=== PATIENT | male | born 1960 | race African-American/Black ===

== ENCOUNTER 2017-06-12 08:37 | Outpatient (CLI) | payer BC ==
[2017-06-12] MEDS ORDERED: Gadobenate Dimeglumine 529 MG/1 ML (20ML VIAL) ONE (13:27)
== END 2017-06-12 08:38 | disposition home or self-care (01) ==
LOC: BICMRI 08:37
PROVIDERS: ATTEND Otolaryngology Plastic Surgery within the Head & Neck
DX: R42 Dizziness and giddiness (principal); I67.89 Other cerebrovascular disease; Q28.3 Other malformations of cerebral vessels
CPT/HCPCS: 70553; A9579

== ENCOUNTER 2018-01-18 08:45 | Inpatient (IN) | payer BC ==
[2018-01-18 09:14] VITALS: BMI 24.3
[2018-01-30] MEDS ORDERED: CEFAZOLIN/Water 2 GM/20 ML SYRINGE ONE (06:57)
[2018-01-30] MEDS ORDERED: Sodium Chloride 0.9% 100 ML ONE (06:57)
[2018-01-30] MEDS ORDERED: Promethazine HCl 25 MG/ML VIAL IM PRN ×3 (08:00→10:32)
[2018-01-30] MEDS ORDERED: Ondansetron HCl/PF 4 MG/2 ML Vial IVP PRN ×3 (08:00→10:32)
[2018-01-30] MEDS ORDERED: Hydrocerin (Eucerin) Cream 120 gm Jar TOP PRN (08:00)
[2018-01-30] MEDS ORDERED: Promethazine HCl 25 MG SUPP PR PRN (08:00)
[2018-01-30] MEDS ORDERED: HYDROcodone/Acetaminophen 5/325 mg Tablet PO PRN ×2 (08:00)
[2018-01-30] MEDS ORDERED: diphenhydrAMINE 50 MG/ML VIAL IVP PRN (08:00)
[2018-01-30] MEDS ORDERED: traMADol HCl 50 MG TAB PO PRN ×3 (08:00→09:03)
[2018-01-30] MEDS ORDERED: Zolpidem Tartrate 5 MG TAB PO PRN ×2 (08:00→09:03)
[2018-01-30] MEDS ORDERED: fentaNYL Citrate/PF 1,250 MCG, Bupivacaine 25 ML in Sodium Chloride 0.9% 250 ML 200 ML EPIDURAL SCH (08:00)
[2018-01-30] MEDS ORDERED: Naloxone HCl 0.4 mg/ml Vial IVP PRN (08:00)
[2018-01-30] MEDS ORDERED: diphenhydrAMINE 50 MG/ML VIAL IM PRN (08:00)
[2018-01-30] MEDS ORDERED: Naloxone HCl 0.4 mg/ml Vial IV PRN (08:00)
[2018-01-30] MEDS ORDERED: Ketorolac Tromethamine 30 MG/ML VIAL IVP PRN (08:00)
[2018-01-30] MEDS ORDERED: Bupivacaine 0.25% 10 ML VIAL EPIDURAL PRN (08:00)
[2018-01-30] MEDS ORDERED: Acetaminophen 325 MG TAB PO PRN (09:03)
[2018-01-30] MEDS ORDERED: Loperamide HCl 2 MG CAP PO PRN (09:03)
[2018-01-30] MEDS ORDERED: diphenhydrAMINE 25 MG CAP PO PRN (09:03)
[2018-01-30] MEDS ORDERED: HYDROcodone/Acetaminophen 10/325 mg Tablet PO PRN ×2 (09:03)
[2018-01-30] MEDS ORDERED: Fentanyl 100 MCG/2 ML VIAL SLOW IVP PRN ×2 (09:03)
[2018-01-30] MEDS ORDERED: Ropivacaine 0.2% HCl/PF 20 ML ONE (09:37)
[2018-01-30] MEDS ORDERED: Promethazine HCl 25 MG/ML VIAL SLOW IVP PRN (10:32)
[2018-01-30] MEDS ORDERED: Fentanyl 100 MCG/2 ML VIAL ONE (11:17)
--- NOTE | 2018-01-30 12:46 | OP ---
PREOPERATIVE DIAGNOSIS: Degenerative joint disease, right hip. POSTOPERATIVE DIAGNOSIS: Degenerative joint disease, right hip. SURGEON: Raul James M.D. CARPENTRY INSTRUCTOR: Mark Liao PA-C. BLOOD LOSS: 200 mL SPECIMEN: None. DRAINS: None. COMPLICATIONS: None. IMPLANTS USED: [place] Accolade stem #3 with a -5 ceramic 36 head, 52 mm PSL cup with a 36 mm X3 bob yethylene liner. PROCEDURE IN DETAIL: After informed consent was obtained in the preoperative holding area, the patie nt was taken to the operative suite where general anesthesia was induced. The patient was then posit ioned in the lateral decubitus position. The hip was then prepped and draped in usual sterile fashio n. The patient received preoperative antibiotics. Prior to incision, time-out was called and all me mbers of the surgical team agreed upon site, surgeon, and patient. After this, a longitudinal incisi on was made directly over the trochanter, noted by palpation extending 2 fingerbreadths above and bel ow the trochanter. The deeper subcutaneous layer was undermined with Bovie electrocautery. The ilio tibial band was encountered and incised sharply and the plane below this was developed bluntly. [facility] to hold this opened. The lateral aspect of the trochanter and the abduct or muscles were encountered and then reflected anteriorly off the trochanter using Bovie electrocaute ry. Once this was completed, the anterior capsule was then encountered and identified and copious ca psulotomy was carried out, exposing the femoral neck and head. Dislocation maneuver was then performe d and an in situ provisional neck cut was then made using the oscillating saw. Attention was then tu rned to acetabular preparation and sequential reaming was carried out up to the appropriate diameter and a trial was then malleted into place with good firm resistance and no pullout. The permanent lavonne tabular shell was then malleted squarely into place, as was the appropriate liner. Once completed, t he wound was copiously irrigated and attention was then turned to femoral preparation. Flexion and ex ternal rotation was performed of the exposed thigh and femoral elevators were then placed at the prox imal aspect of the wound. Canal finder was used to establish the length of the canal and sequential reaming was carried out, followed by broaching. Once the appropriate stability was established with the trial broaches with both flexion, extension and rotational stability, we did trial with neutral a nd 2 mm offset incremental necks. Once the appropriate size was decided upon, with good stability no malu with flexion, extension, internal and external rotation and shuck being negative, we removed the femoral trial broach and malletted into place the permanent prosthesis with good firm fit, which was also stable to rotation. Again, the hip felt very stable to flexion, extension, internal and externa l rotation. Leg lengths appeared near anatomic clinically and we were quite happy with prosthesis pl acement. Copious irrigation was then carried out through the entirety of the wound. Primary closure of the abductors was accomplished with interrupted #2 Vicryl [id number] stitches and the IT ban d was then closed with interrupted #2 Vicryl, oversewn with a #2 running barbed Quill stitch. Subcut aneous fascia was closed with running barbed Quill stitch and a subcuticular Monocryl barbed Quill st itch was used for skin closure and augmented with skin cement. A sterile dressing was applied. The p rocedure was terminated without any complication. All counts were correct. The patient was awakened in the operative suite and taken to the recovery room in stable condition.
--- NOTE | 2018-01-30 12:49 | RAD ---
FRONTAL VIEW RIGHT HIP: Indication: Post op evaluation. FINDINGS: There is a right hip prosthesis appropriately aligned. No acute hardware complication. IMPRESSION: Post-operative right hip without acute hardware complication. POS: [facility]
[2018-01-30] MEDS ORDERED: PROPOFOL 200 MG/20 ML VIAL ONE (13:27)
[2018-01-30] MEDS ORDERED: Glycopyrrolate 0.2 MG/ML 5 ML SYRINGE ONE (13:27)
[2018-01-30] MEDS ORDERED: Ondansetron HCl/PF 4 MG/2 ML Vial ONE (13:27)
[2018-01-30] MEDS ORDERED: PHENYLEPHRINE-NS 100 MCG/ML 10 ML SYRINGE ONE (13:27)
--- NOTE | 2018-01-30 13:47 | PDOC.PN ---
- Subjective Encounter Start Date: 01/30/18 Encounter Start Time: 15:00 -: old records requested/rev Patient seen and examined. No new complaints. consulted for medical management - Objective MAR Reviewed: Yes Vital Signs & Weight: Weight Weight 165 lb Additional Labs: old medical record and labs reviewed Radiology Reviewed by me: Yes (hip xray reviewed) Phys Exam - Physical Examination Constitutional: NAD HEENT: PERRLA, moist MMs, sclera anicteric Neck: no JVD, supple Respiratory: no wheezing, no rales, no rhonchi Cardiovascular: RRR, no significant murmur, no rub Gastrointestinal: soft, non-tender, no distention, positive bowel sounds Musculoskeletal: no edema, pulses present right hip surgical site with dressing, epidural in place Neurological: non-focal, normal sensation, moves all 4 limbs Psychiatric: normal affect, A&O x 3 Skin: no rash, normal turgor Dx/Plan (1) Status post total hip replacement, right Code(s): Z96.641 - PRESENCE OF RIGHT ARTIFICIAL HIP JOINT Status: Acute (2) Anxiety and depression Code(s): F41.9 - ANXIETY DISORDER, UNSPECIFIED; F32.9 - MAJOR DEPRESSIVE DISORDER, SINGLE EPISODE, UNSPECIFIED Status: Chronic (3) BPH (benign prostatic hyperplasia) Code(s): N40.0 - BENIGN PROSTATIC HYPERPLASIA WITHOUT LOWER URINRY TRACT SYMP Status: Chronic (4) Dyslipidemia Code(s): E78.5 - HYPERLIPIDEMIA, UNSPECIFIED Status: Chronic (5) Glaucoma Code(s): H40.9 - UNSPECIFIED GLAUCOMA Status: Chronic (6) Hypertension Code(s): I10 - ESSENTIAL (PRIMARY) HYPERTENSION Status: Chronic - Plan cont current plan of care, PT/OT * continue aspirin for DVT prophylaxis as per protocol * add pepcid for GI prophylaxis * code status- full code * epidural as per anesthesia * PT/OT as per [facility] protocol * pain control with pain meds as below * medication reviewed as below * symptomatic treatment * home medication reconciled. Review of Systems - Review of Systems Constitutional: negative: fever, chills, sweats, weakness, malaise, other ENT: negative: Ear Pain, Ear Discharge, Nose Pain, Nose Discharge, Nose Congestion, Mouth Pain, Mouth Swelling, Throat Pain, Throat Swelling, Other Respiratory: negative: Cough, Dry, Shortness of Breath, Hemoptysis, SOB with Excertion, Pleuritic Pain, Sputum, Wheezing Cardiovascular: negative: chest pain, palpitations, orthopnea, paroxysmal nocturnal dyspnea, edema, light headedness, other Gastrointestinal: negative: Nausea, Vomiting, Abdominal Pain, Diarrhea, Constipation, Melena, Hematochezia, Other Genitourinary: negative: Dysuria, Frequency, Incontinence, Hematuria, Retention , Other Musculoskeletal: negative: Neck Pain, Shoulder Pain, Arm Pain, Back Pain, Hand Pain, Leg Pain, Foot Pain, Other Skin: negative: Rash, Lesions, [place], Bruising, Other - Medications/Allergies Allergies/Adverse Reactions: Allergies Allergy/AdvReac Type Severity Reaction Status Date / Time iodine Allergy Verified 01/18/18 09:14 shellfish derived Allergy Verified 01/18/18 09:14 lactose AdvReac intolerant Verified 01/18/18 09:22 Medications: Current Medications Acetaminophen (Tylenol) 650 mg PO Q4H PRN PRN Reason: EATON/ T > 101F; Mild Pain (1-3) Hydrocodone Bitart/Acetaminophen ([place] 5/325) 1 tab PO Q4H PRN PRN Reason: Mild Pain 0-3 Hydrocodone Bitart/Acetaminophen ([place] 5/325) 2 tab PO Q4H PRN PRN Reason: For Moderate Pain 4-6 Hydrocodone Bitart/Acetaminophen ([place] 10/325) 1 tab PO Q4H PRN PRN Reason: Moderate Pain (4-6) Hydrocodone Bitart/Acetaminophen ([place] 10/325) 2 tab PO Q4H PRN PRN Reason: Severe Pain (7-10) Aspirin (Ecotrin) 81 mg PO BID [facility] Atorvastatin Calcium (Lipitor) 80 mg PO HS [facility] Bupivacaine HCl (Marcaine) 5 ml EPIDURAL ONE PRN PRN Reason: UNCONTROLLED PAIN Stop: 01/31/18 08:01 Bupropion HCl (Wellbutrin Xl) 150 mg PO QAM [facility] Cefazolin Sodium (Ancef) 2 gm SLOW IVP Q8HR [facility] Stop: 01/30/18 22:01 Diphenhydramine HCl (Benadryl) 25 mg PO Q3H PRN PRN Reason: Itching Diphenhydramine HCl (Benadryl) 25 mg IM Q3H PRN PRN Reason: Itching Diphenhydramine HCl (Benadryl) 25 mg IVP Q3H PRN PRN Reason: Itching Diphenhydramine HCl (Benadryl) 25 mg PO Q6H PRN PRN Reason: Itching Emollient Cream (Hydrocerin Cream) 0 gm TOP PRN PRN PRN Reason: Itching Fentanyl (Sublimaze) 50 mcg SLOW IVP Q30MIN PRN PRN Reason: Moderate Pain (4-6) Fentanyl (Sublimaze) 100 mcg SLOW IVP Q1H PRN PRN Reason: Severe Pain (7-10) Ferrous Gluconate (Fergon) 324 mg PO BID [facility] Fentanyl Citrate 1,250 mcg/Bupivacaine HCl 25 ml/ Sodium Chloride 250 mls @ 6 mls/hr EPIDURAL INF LINDA Sodium Chloride (Normal Saline 0.9%) 1,000 mls @ 100 mls/hr IV .Q10H [facility] Iron/Minerals/Multivitamins (Theragran M) 1 tab PO DAILY [facility] Ketorolac Tromethamine (Toradol) 30 mg IVP Q6H PRN PRN Reason: Moderate Pain (4-6) Stop: 02/02/18 08:01 Latanoprost (Xalatan 0.005% Ophth Soln) 1 drop EA EYE HS [facility] Loperamide HCl (Imodium) 2 mg PO PRN PRN PRN Reason: Diarrhea/Loose Stools Losartan Potassium (Cozaar) 100 mg PO DAILY [facility] Miscellaneous Information (Communication Order-Pharmacy) 1 each FS ASDIR [facility] Naloxone HCl (Narcan) 0.2 mg IV Q5MIN PRN PRN Reason: RR <=8 OR OBTUNDED/UNAROUSABLE Naloxone HCl (Narcan) 0.1 mg IVP Q15MIN PRN PRN Reason: URINARY RETENTION Ondansetron HCl (Zofran) 4 mg IVP Q6H PRN PRN Reason: Nausea/Vomiting Promethazine HCl (Phenergan Suppository) 25 mg NV Q4H PRN PRN Reason: Nausea/Vomiting Promethazine HCl (Phenergan) 12.5 mg IM Q4H PRN PRN Reason: Nausea/Vomiting Senna/Docusate Sodium (Senokot S) 2 tab PO BID [facility] Sodium Chloride (Flush - Normal Saline) 10 ml IVF PRN PRN PRN Reason: Saline Flush Tamsulosin HCl (Flomax) 0.4 mg PO HS [facility] Tramadol HCl (Ultram) 50 mg PO Q6H PRN PRN Reason: Mild Pain 1-3 Tramadol HCl (Ultram) 100 mg PO Q6H PRN PRN Reason: Moderate Pain 4-6 Tramadol HCl (Ultram) 100 mg PO Q6H PRN PRN Reason: Mild Pain (1-3) Zolpidem Tartrate (Ambien) 5 mg PO HSPRN PRN PRN Reason: Insomnia Zolpidem Tartrate (Ambien) 5 mg PO HSPRN PRN PRN Reason: Insomnia
[2018-01-30] MEDS ORDERED: hydrALAZINE 20 MG/ML VIAL SLOW IVP PRN (13:50)
[2018-01-30] MEDS ORDERED: Milk Of Magnesia 30 ML UDCUP PO PRN (13:50)
[2018-01-30] MEDS ORDERED: Chloraseptic Spray 180 ml Bottle PO PRN (13:50)
[2018-01-30] MEDS ORDERED: Artificial Tears 18 DROP/0.9 ML EA EYE PRN (13:50)
[2018-01-30] MEDS ORDERED: Eucerin (Mineral Oil/Petrolatum,White) 30 gm Jar TOP PRN (13:50)
[2018-01-30] MEDS ORDERED: Ondansetron ODT 4 MG TAB PO PRN (13:50)
[2018-01-30] MEDS ORDERED: Senokot 8.6 MG TAB PO PRN (13:50)
[2018-01-30] MEDS ORDERED: Diabetic Tussin 200 MG/10 ML UDCUP PO PRN (13:50)
[2018-01-30] MEDS ORDERED: Mag-Al 1200 mg/1200 mg/30 ML UDCUP PO PRN (13:50)
[2018-01-30] MEDS ORDERED: CEFAZOLIN/Water 2 GM/20 ML SYRINGE SLOW IVP SCH (14:00)
[2018-01-30] MEDS: CEFAZOLIN/Water 2 GM/20 ML SYRINGE SLOW IVP SCH (16:38)
[2018-01-30] MEDS: Sodium Chloride 0.9% 1,000 ML IV SCH ×2 (16:39→17:27)
[2018-01-30] MEDS: Ferrous Gluconate 324 MG TAB PO SCH (20:59)
[2018-01-30] MEDS: Atorvastatin Calcium 40 MG TAB PO SCH (20:59)
[2018-01-30] MEDS: Tamsulosin HCl 0.4 MG CAP PO SCH (20:59)
[2018-01-30] MEDS: Aspirin 81 mg Enteric Coated Tablet PO SCH (21:00)
[2018-01-30] MEDS: Latanoprost 0.005% Ophth Soln 2.5 ml Bottle EA EYE SCH (21:01)
[2018-01-30] MEDS: Famotidine 20 MG TAB PO SCH (21:01)
[2018-01-30] MEDS: Senokot S 8.6-50 MG TAB PO SCH (21:02)
[2018-01-31] MEDS: CEFAZOLIN/Water 2 GM/20 ML SYRINGE SLOW IVP SCH (00:50)
[2018-01-31] MEDS: Sodium Chloride 0.9% 1,000 ML IV SCH ×2 (04:19→16:34)
[2018-01-31 05:54] LABS: Hemoglobin 11.1 g/dL (14.0-18.0); Mean Corpuscular HGB CONC 34.3 g/dL (32.0-36.0); Mean Corpuscular Hemoglobin 30.1 pg (27.0-31.0); Mean Corpuscular Volume 87.6 fL (78.0-98.0); Mean Platelet Volume 6.9 fL (7.4-10.4); Platelet Count 167 thou/uL (130-400); RBC Distribution Width 12.3 % (11.5-14.5); Red Blood Cell (RBC) Count 3.69 mill/uL (4.70-6.10); White Blood Cell (WBC) Count 7.1 thou/uL (4.8-10.8)
[2018-01-31] MEDS: diphenhydrAMINE 25 MG CAP PO PRN ×2 (06:40→20:38)
[2018-01-31] MEDS: Multivitamin W/ Minerals 1 TAB PO SCH (08:52)
[2018-01-31] MEDS: Aspirin 81 mg Enteric Coated Tablet PO SCH ×2 (08:53→20:33)
[2018-01-31] MEDS: Ferrous Gluconate 324 MG TAB PO SCH ×2 (08:53→20:33)
[2018-01-31] MEDS: Famotidine 20 MG TAB PO SCH ×2 (08:54→20:33)
[2018-01-31] MEDS: Senokot S 8.6-50 MG TAB PO SCH ×2 (08:54→20:33)
[2018-01-31] MEDS: Losartan 25 MG TAB PO SCH (08:54)
[2018-01-31] MEDS: Bupropion 150 MG XL TAB PO SCH (08:56)
--- NOTE | 2018-01-31 10:31 | PDOC.PN ---
- Subjective Encounter Start Date: 01/31/18 Encounter Start Time: 09:30 Patient seen and examined. No new complaints. No overnight events overall doing well, pain is controlled, - Objective Resuscitation Status: Resuscitation Status FULL:Full Resuscitation MAR Reviewed: Yes Vital Signs & Weight: Vital Signs (12 hours) Temp Pulse Resp BP BP Pulse Ox 01/31/18 07:52 99.4 F 103 H 16 124/73 97 01/31/18 04:00 99.8 F H 89 18 125/72 98 01/31/18 00:00 99.8 F H 75 18 149/76 H 99 Weight Weight 165 lb I&O: 01/30/18 01/31/18 02/01/18 06:59 06:59 06:59 Intake Total 920 2208 Output Total 1150 2600 Balance -230 -392 Result Diagrams: 01/31/18 05:21 Phys Exam - Physical Examination Constitutional: NAD HEENT: PERRLA, moist MMs, sclera anicteric Neck: no JVD, supple Respiratory: no wheezing, no rales, no rhonchi Cardiovascular: RRR, no significant murmur, no rub Gastrointestinal: soft, non-tender, no distention, positive bowel sounds Musculoskeletal: no edema, pulses present surgical site with dressing Neurological: non-focal, normal sensation Psychiatric: normal affect, A&O x 3 Skin: no rash, normal turgor Dx/Plan (1) Status post total hip replacement, right Code(s): Z96.641 - PRESENCE OF RIGHT ARTIFICIAL HIP JOINT Status: Acute (2) Anxiety and depression Code(s): F41.9 - ANXIETY DISORDER, UNSPECIFIED; F32.9 - MAJOR DEPRESSIVE DISORDER, SINGLE EPISODE, UNSPECIFIED Status: Chronic (3) BPH (benign prostatic hyperplasia) Code(s): N40.0 - BENIGN PROSTATIC HYPERPLASIA WITHOUT LOWER URINRY TRACT SYMP Status: Chronic (4) Dyslipidemia Code(s): E78.5 - HYPERLIPIDEMIA, UNSPECIFIED Status: Chronic (5) Glaucoma Code(s): H40.9 - UNSPECIFIED GLAUCOMA Status: Chronic (6) Hypertension Code(s): I10 - ESSENTIAL (PRIMARY) HYPERTENSION Status: Chronic - Plan cont current plan of care, PT/OT * continue aspirin for DVT prophylaxis * continue pepcid for GI prophylaxis * epidural as per anesthesia * PT/OT as per [facility] protocol * pain controlled with pain meds as below * medication reviewed as below * symptomatic treatment * medically stable with current treatment * discharge will defer to primary team. Review of Systems - Review of Systems ENT: negative: Ear Pain, Ear Discharge, Nose Pain, Nose Discharge, Nose Congestion, Mouth Pain, Mouth Swelling, Throat Pain, Throat Swelling, Other Respiratory: negative: Cough, Dry, Shortness of Breath, Hemoptysis, SOB with Excertion, Pleuritic Pain, Sputum, Wheezing Cardiovascular: negative: chest pain, palpitations, orthopnea, paroxysmal nocturnal dyspnea, edema, light headedness, other Gastrointestinal: negative: Nausea, Vomiting, Abdominal Pain, Diarrhea, Constipation, Melena, Hematochezia, Other Genitourinary: negative: Dysuria, Frequency, Incontinence, Hematuria, Retention , Other Musculoskeletal: negative: Neck Pain, Shoulder Pain, Arm Pain, Back Pain, Hand Pain, Leg Pain, Foot Pain, Other Skin: negative: Rash, Lesions, [place], Bruising, Other - Medications/Allergies Allergies/Adverse Reactions: Allergies Allergy/AdvReac Type Severity Reaction Status Date / Time iodine Allergy Verified 01/18/18 09:14 shellfish derived Allergy Verified 01/18/18 09:14 lactose AdvReac intolerant Verified 01/18/18 09:22 Medications: Current Medications Acetaminophen (Tylenol) 650 mg PO Q4H PRN PRN Reason: EATON/ T > 101F; Mild Pain (1-3) Hydrocodone Bitart/Acetaminophen ([place] 5/325) 1 tab PO Q4H PRN PRN Reason: Mild Pain 0-3 Hydrocodone Bitart/Acetaminophen ([place] 5/325) 2 tab PO Q4H PRN PRN Reason: For Moderate Pain 4-6 Al Hydroxide/Mg Hydroxide (Maalox) 15 ml PO Q4H PRN PRN Reason: Heartburn or Indigestion Artificial Tears (Tears Naturale) 0 drop EA EYE PRN PRN PRN Reason: Dry Eyes Aspirin (Ecotrin) 81 mg PO BID [facility] Last Admin: 01/31/18 08:53 Dose: 81 mg Atorvastatin Calcium (Lipitor) 80 mg PO HS [facility] Last Admin: 01/30/18 20:59 Dose: 80 mg Bupropion HCl (Wellbutrin Xl) 150 mg PO QAM [facility] Last Admin: 01/31/18 08:56 Dose: 150 mg Diphenhydramine HCl (Benadryl) 25 mg PO Q3H PRN PRN Reason: Itching Last Admin: 01/31/18 06:40 Dose: 25 mg Diphenhydramine HCl (Benadryl) 25 mg IM Q3H PRN PRN Reason: Itching Diphenhydramine HCl (Benadryl) 25 mg IVP Q3H PRN PRN Reason: Itching Diphenhydramine HCl (Benadryl) 25 mg PO Q6H PRN PRN Reason: Itching Emollient Cream (Hydrocerin Cream) 0 gm TOP PRN PRN PRN Reason: Itching Famotidine (Pepcid) 20 mg PO BID [facility] Last Admin: 01/31/18 08:54 Dose: 20 mg Ferrous Gluconate (Fergon) 324 mg PO BID [facility] Last Admin: 01/31/18 08:53 Dose: 324 mg Guaifenesin (Robitussin Sf) 200 mg PO Q4H PRN PRN Reason: Cough Hydralazine HCl (Apresoline) 10 mg SLOW IVP Q4H PRN PRN Reason: Systolic BP > 180 Fentanyl Citrate 1,250 mcg/Bupivacaine HCl 25 ml/ Sodium Chloride 250 mls @ 6 mls/hr EPIDURAL INF [facility] Sodium Chloride (Normal Saline 0.9%) 1,000 mls @ 100 mls/hr IV .Q10H [facility] Last Admin: 01/31/18 04:19 Dose: Not Given Iron/Minerals/Multivitamins (Theragran M) 1 tab PO DAILY [facility] Last Admin: 01/31/18 08:52 Dose: 1 tab Ketorolac Tromethamine (Toradol) 30 mg IVP Q6H PRN PRN Reason: Moderate Pain (4-6) Stop: 02/02/18 08:01 Latanoprost (Xalatan 0.005% Ophth Soln) 1 drop EA EYE HS [facility] Last Admin: 01/30/18 21:01 Dose: 1 drp Loperamide HCl (Imodium) 2 mg PO PRN PRN PRN Reason: Diarrhea/Loose Stools Losartan Potassium (Cozaar) 100 mg PO DAILY [facility] Last Admin: 01/31/18 08:54 Dose: 100 mg Magnesium Hydroxide (Milk Of Magnesium) 30 ml PO DAILYPRN PRN PRN Reason: Constipation Mineral Oil/White Petrolatum (Eucerin Cream) 0 gm TOP BIDPRN PRN PRN Reason: Dry Skin Miscellaneous Information (Communication Order-Pharmacy) 1 each FS ASDIR [facility] Naloxone HCl (Narcan) 0.2 mg IV Q5MIN PRN PRN Reason: RR <=8 OR OBTUNDED/UNAROUSABLE Naloxone HCl (Narcan) 0.1 mg IVP Q15MIN PRN PRN Reason: URINARY RETENTION Ondansetron HCl (Zofran) 4 mg IVP Q6H PRN PRN Reason: Nausea/Vomiting Ondansetron HCl (Zofran Odt) 4 mg PO Q6H PRN PRN Reason: Nausea/Vomiting Phenol (Chloraseptic [place] 180 Ml Bot) 0 ml PO PRN PRN PRN Reason: Sore Throat Promethazine HCl (Phenergan Suppository) 25 mg [place] Q4H PRN PRN Reason: Nausea/Vomiting Promethazine HCl (Phenergan) 12.5 mg IM Q4H PRN PRN Reason: Nausea/Vomiting Senna (Senokot) 2 tab PO HSPRN PRN PRN Reason: Constipation Senna/Docusate Sodium (Senokot S) 2 tab PO BID [facility] Last Admin: 01/31/18 08:54 Dose: Not Given Sodium Chloride (Flush - Normal Saline) 10 ml IVF PRN PRN PRN Reason: Saline Flush Tamsulosin HCl (Flomax) 0.4 mg PO [facility] Last Admin: 01/30/18 20:59 Dose: 0.4 mg Tramadol HCl (Ultram) 50 mg PO Q6H PRN PRN Reason: Mild Pain 1-3 Tramadol HCl (Ultram) 100 mg PO Q6H PRN PRN Reason: Moderate Pain 4-6 Zolpidem Tartrate (Ambien) 5 mg PO HSPRN PRN PRN Reason: Insomnia
[2018-01-31] MEDS: Latanoprost 0.005% Ophth Soln 2.5 ml Bottle EA EYE SCH (20:32)
[2018-01-31] MEDS: Tamsulosin HCl 0.4 MG CAP PO SCH (20:33)
[2018-01-31] MEDS: Atorvastatin Calcium 40 MG TAB PO SCH (20:33)
[2018-02-01] MEDS: Sodium Chloride 0.9% 1,000 ML IV SCH (00:15)
[2018-02-01 06:02] LABS: Hemoglobin 10.3 g/dL (14.0-18.0); Mean Corpuscular HGB CONC 34.6 g/dL (32.0-36.0); Mean Corpuscular Hemoglobin 30.2 pg (27.0-31.0); Mean Corpuscular Volume 87.2 fL (78.0-98.0); Mean Platelet Volume 6.8 fL (7.4-10.4); Platelet Count 134 thou/uL (130-400); RBC Distribution Width 12.3 % (11.5-14.5); Red Blood Cell (RBC) Count 3.42 mill/uL (4.70-6.10); White Blood Cell (WBC) Count 7.1 thou/uL (4.8-10.8)
--- NOTE | 2018-02-01 09:43 | PDOC.PN ---
- Subjective Encounter Start Date: 02/01/18 Encounter Start Time: 08:10 Patient seen and examined. No new complaints. No overnight events he still has epidural and rogers+ - Objective Resuscitation Status: Resuscitation Status FULL:Full Resuscitation MAR Reviewed: Yes Vital Signs & Weight: Vital Signs (12 hours) Temp Pulse Resp BP Pulse Ox 02/01/18 07:48 99.3 F 111 H 16 128/67 98 02/01/18 03:55 99.4 F 92 16 113/64 98 01/31/18 23:27 98.7 F 100 16 115/66 99 Weight Admit Weight 165 lb Weight 165 lb I&O: 01/31/18 02/01/18 02/02/18 06:59 06:59 06:59 Intake Total 920 3168 Output Total 1150 3800 Balance -230 -632 Result Diagrams: 02/01/18 05:29 Additional Labs: Accuchecks 01/31/18 11:22 POC Glucose 123 H Phys Exam - Physical Examination Constitutional: NAD HEENT: PERRLA, moist MMs, sclera anicteric Neck: no JVD, supple Respiratory: no wheezing, no rales, no rhonchi Cardiovascular: RRR, no significant murmur, no rub Gastrointestinal: soft, non-tender, no distention, positive bowel sounds Musculoskeletal: no edema, pulses present Neurological: non-focal, normal sensation, moves all 4 limbs Psychiatric: normal affect, A&O x 3 Skin: no rash, normal turgor Dx/Plan (1) Status post total hip replacement, right Code(s): Z96.641 - PRESENCE OF RIGHT ARTIFICIAL HIP JOINT Status: Acute (2) Anxiety and depression Code(s): F41.9 - ANXIETY DISORDER, UNSPECIFIED; F32.9 - MAJOR DEPRESSIVE DISORDER, SINGLE EPISODE, UNSPECIFIED Status: Chronic (3) BPH (benign prostatic hyperplasia) Code(s): N40.0 - BENIGN PROSTATIC HYPERPLASIA WITHOUT LOWER URINRY TRACT SYMP Status: Chronic (4) Dyslipidemia Code(s): E78.5 - HYPERLIPIDEMIA, UNSPECIFIED Status: Chronic (5) Glaucoma Code(s): H40.9 - UNSPECIFIED GLAUCOMA Status: Chronic (6) Hypertension Code(s): I10 - ESSENTIAL (PRIMARY) HYPERTENSION Status: Chronic - Plan cont current plan of care * pt is doing very well * medically stable for discharge * consider rogers removal * medication reviewed as below * symptomatic treatment. * resume home meds on discharge Review of Systems - Review of Systems ENT: negative: Ear Pain, Ear Discharge, Nose Pain, Nose Discharge, Nose Congestion, Mouth Pain, Mouth Swelling, Throat Pain, Throat Swelling, Other Respiratory: negative: Cough, Dry, Shortness of Breath, Hemoptysis, SOB with Excertion, Pleuritic Pain, Sputum, Wheezing Cardiovascular: negative: chest pain, palpitations, orthopnea, paroxysmal nocturnal dyspnea, edema, light headedness, other Gastrointestinal: negative: Nausea, Vomiting, Abdominal Pain, Diarrhea, Constipation, Melena, Hematochezia, Other Genitourinary: negative: Dysuria, Frequency, Incontinence, Hematuria, Retention , Other Musculoskeletal: negative: Neck Pain, Shoulder Pain, Arm Pain, Back Pain, Hand Pain, Leg Pain, Foot Pain, Other - Medications/Allergies Allergies/Adverse Reactions: Allergies Allergy/AdvReac Type Severity Reaction Status Date / Time iodine Allergy Verified 01/18/18 09:14 shellfish derived Allergy Verified 01/18/18 09:14 lactose AdvReac intolerant Verified 01/18/18 09:22 Medications: Current Medications Acetaminophen (Tylenol) 650 mg PO Q4H PRN PRN Reason: EATON/ T > 101F; Mild Pain (1-3) Hydrocodone Bitart/Acetaminophen ([place] 5/325) 1 tab PO Q4H PRN PRN Reason: Mild Pain 0-3 Hydrocodone Bitart/Acetaminophen ([place] 5/325) 2 tab PO Q4H PRN PRN Reason: For Moderate Pain 4-6 Al Hydroxide/Mg Hydroxide (Maalox) 15 ml PO Q4H PRN PRN Reason: Heartburn or Indigestion Artificial Tears (Tears Naturale) 0 drop EA EYE PRN PRN PRN Reason: Dry Eyes Aspirin (Ecotrin) 81 mg PO BID [facility] Last Admin: 01/31/18 20:33 Dose: 81 mg Atorvastatin Calcium (Lipitor) 80 mg PO HS [facility] Last Admin: 01/31/18 20:33 Dose: 80 mg Bupropion HCl (Wellbutrin Xl) 150 mg PO QAM [facility] Last Admin: 01/31/18 08:56 Dose: 150 mg Diphenhydramine HCl (Benadryl) 25 mg PO Q3H PRN PRN Reason: Itching Last Admin: 01/31/18 20:38 Dose: 25 mg Diphenhydramine HCl (Benadryl) 25 mg IM Q3H PRN PRN Reason: Itching Diphenhydramine HCl (Benadryl) 25 mg IVP Q3H PRN PRN Reason: Itching Diphenhydramine HCl (Benadryl) 25 mg PO Q6H PRN PRN Reason: Itching Emollient Cream (Hydrocerin Cream) 0 gm TOP PRN PRN PRN Reason: Itching Famotidine (Pepcid) 20 mg PO BID [facility] Last Admin: 01/31/18 20:33 Dose: 20 mg Ferrous Gluconate (Fergon) 324 mg PO BID [facility] Last Admin: 01/31/18 20:33 Dose: 324 mg Guaifenesin (Robitussin Sf) 200 mg PO Q4H PRN PRN Reason: Cough Hydralazine HCl (Apresoline) 10 mg SLOW IVP Q4H PRN PRN Reason: Systolic BP > 180 Fentanyl Citrate 1,250 mcg/Bupivacaine HCl 25 ml/ Sodium Chloride 250 mls @ 6 mls/hr EPIDURAL INF [facility] Sodium Chloride (Normal Saline 0.9%) 1,000 mls @ 100 mls/hr IV .Q10H [facility] Last Admin: 02/01/18 00:15 Dose: Not Given Iron/Minerals/Multivitamins (Theragran M) 1 tab PO DAILY [facility] Last Admin: 01/31/18 08:52 Dose: 1 tab Ketorolac Tromethamine (Toradol) 30 mg IVP Q6H PRN PRN Reason: Moderate Pain (4-6) Stop: 02/02/18 08:01 Latanoprost (Xalatan 0.005% Oph Soln) 1 drop EA EYE HS [facility] Last Admin: 01/31/18 20:32 Dose: 1 drp Loperamide HCl (Imodium) 2 mg PO PRN PRN PRN Reason: Diarrhea/Loose Stools Losartan Potassium (Cozaar) 100 mg PO DAILY [facility] Last Admin: 01/31/18 08:54 Dose: 100 mg Magnesium Hydroxide (Milk Of Magnesium) 30 ml PO DAILYPRN PRN PRN Reason: Constipation Mineral Oil/White Petrolatum (Eucerin Cream) 0 gm TOP BIDPRN PRN PRN Reason: Dry Skin Miscellaneous Information (Communication Order-Pharmacy) 1 each FS ASDIR LINDA Naloxone HCl (Narcan) 0.2 mg IV Q5MIN PRN PRN Reason: RR <=8 OR OBTUNDED/UNAROUSABLE Naloxone HCl (Narcan) 0.1 mg IVP Q15MIN PRN PRN Reason: URINARY RETENTION Ondansetron HCl (Zofran) 4 mg IVP Q6H PRN PRN Reason: Nausea/Vomiting Ondansetron HCl (Zofran Odt) 4 mg PO Q6H PRN PRN Reason: Nausea/Vomiting Phenol (Chloraseptic [place] 180 Ml Bot) 0 ml PO PRN PRN PRN Reason: Sore Throat Promethazine HCl (Phenergan Suppository) 25 mg WA Q4H PRN PRN Reason: Nausea/Vomiting Promethazine HCl (Phenergan) 12.5 mg IM Q4H PRN PRN Reason: Nausea/Vomiting Senna (Senokot) 2 tab PO HSPRN PRN PRN Reason: Constipation Senna/Docusate Sodium (Senokot S) 2 tab PO BID [facility] Last Admin: 01/31/18 20:33 Dose: 2 tab Sodium Chloride (Flush - Normal Saline) 10 ml IVF PRN PRN PRN Reason: Saline Flush Tamsulosin HCl (Flomax) 0.4 mg PO [facility] Last Admin: 01/31/18 20:33 Dose: 0.4 mg Tramadol HCl (Ultram) 50 mg PO Q6H PRN PRN Reason: Mild Pain 1-3 Tramadol HCl (Ultram) 100 mg PO Q6H PRN PRN Reason: Moderate Pain 4-6 Zolpidem Tartrate (Ambien) 5 mg PO HSPRN PRN PRN Reason: Insomnia
[2018-02-01] MEDS: Losartan 25 MG TAB PO SCH (09:52)
[2018-02-01] MEDS: Bupropion 150 MG XL TAB PO SCH (09:52)
[2018-02-01] MEDS: Ferrous Gluconate 324 MG TAB PO SCH (09:53)
[2018-02-01] MEDS: Senokot S 8.6-50 MG TAB PO SCH (09:53)
[2018-02-01] MEDS: Aspirin 81 mg Enteric Coated Tablet PO SCH (09:53)
[2018-02-01] MEDS: Multivitamin W/ Minerals 1 TAB PO SCH (09:53)
[2018-02-01] MEDS: Famotidine 20 MG TAB PO SCH (09:53)
--- NOTE | 2018-02-01 10:32 | DIS ---
DATE OF ADMISSION: 01/30/2018 DATE OF DISCHARGE: 02/01/2018 PRIMARY CARE PHYSICIAN: Lasha Parrish M.D. DISCHARGE DISPOSITION: Home. PRIMARY DISCHARGE DIAGNOSIS: Status post right total hip replacement. SECONDARY DISCHARGE DIAGNOSES: Anxiety and depression, benign enlargement of prostate, dyslipidemia, glaucoma and hypertension. PRIMARY PROCEDURE/OPERATION: Right total hip replacement. RADIOLOGICAL INVESTIGATION: Hip x-ray. SIGNIFICANT LABORATORY DATA: WBC 7.1, hemoglobin 10.3, platelet 134. DISCHARGE MEDICATIONS: [place]atum 5 one or two tablets q.6 hourly p.r.n., vitamin C 500 mg p.o. daily, Li pitor 80 mg p.o. at bedtime, bupropion XL 150 mg p.o. daily, vitamin D3 2000 units p.o. daily, Imodiu m 2 mg p.o. as directed, losartan 100 mg p.o. daily, Flomax 0.4 mg p.o. daily, Travatan Z one drop ea ch eye at bedtime, aspirin 81 mg p.o. b.i.d. CONTRAINDICATIONS: None. CODE STATUS: FULL CODE. INPATIENT MOLASSES PREPARER: Dr. James was primary while in hospital. [facility] Team was consulted for medica l comanagement. TEST RESULTS PENDING ON DISCHARGE: None. ALLERGIES: IODINE, SHELLFISH, LACTOSE. DISCHARGE PLAN: Post hospital, patient will follow up with Dr. James on 02/21/2018 at 10:15 a.m. HOSPITAL COURSE: A 57-year-old male who was electively admitted by Dr. James on 01/30/2018 for righ t total hip replacement which was done on that day without any complication. Postoperatively, at [facility], [facility] Team was consulted for medical comanagement. Patient medical problem remains st able. While in hospital, we continued all his home medication. He was given aspirin for DVT prophyl axis. He had epidural for pain control and he was followed by [facility] protocol treatment. He did excellent with the [facility] protocol treatment. Patient did not have any complication s while in the hospital. Today, primary team is planned for discharge. The patient is seen and examined at bedside today. Please see my progress note from today for furthe r detail.
[2018-02-01 11:48] VITALS: BP 132/74; TEMP 98.3
== END 2018-02-01 12:44 | disposition home or self-care (01) | DRG 470 ==
LOC: SJJU 01-30 06:28 → SURG B 01-30 14:58
PROVIDERS: ADMIT Orthopaedic Surgery; ATTEND Orthopaedic Surgery
PROC: 0SR904A Replacement of Right Hip Joint with Ceramic on Polyethylene Synthetic Substitute, Uncemented, Open Approach (ICD-10-PCS; principal; 2018-01-30)
DX: M16.11 Unilateral primary osteoarthritis, right hip (principal); F41.9 Anxiety disorder, unspecified; F32.9 Major depressive disorder, single episode, unspecified; N40.0 Benign prostatic hyperplasia without lower urinary tract symptoms; E78.5 Hyperlipidemia, unspecified; H40.9 Unspecified glaucoma; I10 Essential (primary) hypertension; R73.03 Prediabetes; E55.9 Vitamin D deficiency, unspecified; Z80.42 Family history of malignant neoplasm of prostate; Z82.3 Family history of stroke; Z82.49 Family history of ischemic heart disease and other diseases of the circulatory system
CPT/HCPCS: 36415; 36416; 85027; G8978-GP-CK; G8979-GP-CI; G8987-GO-CJ; G8988-GO-CI; J1200; J2405; J2704; J2795; J3010; J3370; J3490; J7050

== ENCOUNTER 2018-01-18 08:52 | Outpatient (CLI) | payer BC ==
[2018-01-18 10:29] LABS: Bilirubin Negative (Negative); Blood, Urine Negative (Negative); Clarity CLEAR (Clear); Glucose, Urine (Dipstick) Negative (Negative); Leukocyte Negative (Negative); Nitrite Negative (Negative); Protein, Urine (Dipstick) Negative (Neg-Trace); Specific Gravity, Urine 1.017 (1.002-1.036)
[2018-01-18 10:31] LABS: Bacteria/HPF None Seen HPF (None Seen); Hyaline Casts/LPF 0-3 HYALINE CAST LPF (0-3 Hyaline); Pathc Cast-AUWi Flag 0.14 (0-2.49); RBC/HPF 0-3 HPF (0-3); Squamous Epithelial None Seen HPF (0-3); WBC/HPF None Seen HPF (0-3)
--- NOTE | 2018-01-18 12:09 | RAD ---
CHEST PA AND LATERAL: Date: 01/18/18 HISTORY: 57-year-old male for preoperative evaluation. FINDINGS: Heart size is normal. The lungs are clear. No pneumonia, edema, or pleural effusion. IMPRESSION: No acute intrathoracic disease. POS: [facility]
--- NOTE | 2018-01-18 15:24 | EKG ---
Test Reason : Blood Pressure : / mmHG Vent. Rate : 062 BPM Atrial Rate : 062 BPM P-R Int : 164 ms QRS Dur : 078 ms QT Int : 398 ms P-R-T Axes : 072 080 060 degrees QTc Int : 403 ms Normal sinus rhythm Possible Anterior infarct , age undetermined Abnormal ECG When compared with ECG of 02-SEP-2011 16:05, Questionable change in QRS axis Confirmed by LANCE OCHOA, SRenzo ([id number]) on 01/18/2018 3:23:48 PM Referred By: DAFNE Confirmed By:DR. Jenifer LUCAS MD
== END 2018-01-18 08:53 | disposition home or self-care (01) ==
LOC: LABBT 08:52
PROVIDERS: ATTEND Orthopaedic Surgery
DX: Z01.818 Encounter for other preprocedural examination (principal); M16.11 Unilateral primary osteoarthritis, right hip
CPT/HCPCS: 71046; 81001; 87081; 93005; 93010

== ENCOUNTER 2018-01-24 09:04 | Outpatient (CLI) | payer BC ==
[2018-01-24 09:50] LABS: #Eosinphils 0.1 thou/uL (0.0-0.7); #Lymphocytes 1.1 thou/uL (1.20-3.40); #Monocytes 0.3 thou/uL (0.11-0.59); #Neutrophils 3.1 thou/uL (1.40-6.50); %Eosinophils 1.8 % (0.0-10.0); %Lymphocytes 23.6 % (21.0-51.0); %Monocytes 5.9 % (0.0-10.0); %Neutrophils 68.7 % (42.0-75.0); Hemoglobin 13.6 g/dL (14.0-18.0); Mean Corpuscular HGB CONC 34.6 g/dL (32.0-36.0); Mean Corpuscular Hemoglobin 29.9 pg (27.0-31.0); Mean Corpuscular Volume 86.3 fL (78.0-98.0); Platelet Count 190 thou/uL (130-400); RBC Distribution Width 12.6 % (11.5-14.5); Red Blood Cell (RBC) Count 4.57 mill/uL (4.70-6.10); White Blood Cell (WBC) Count 4.5 thou/uL (4.8-10.8)
[2018-01-24 10:01] LABS: INR-International Normal Ratio 0.9; Prothrombin Time 12.7 SEC (12.0-14.7)
[2018-01-24 10:13] LABS: Anion Gap 13 mmol/L (10-20); BUN (Urea Nitrogen) 12 mg/dL (8.4-25.7); Calc. Creatinine Clearance 0 mL/min (70-130); Calcium 9.9 mg/dL (7.8-10.44); Carbon Dioxide 25 mmol/L (22-29); Chloride 106 mmol/L (98-107); Estimated GFR-MDRD Greater than 90; Glucose 80 mg/dL (70-105); Sodium 140 mmol/L (136-145)
== END 2018-01-24 09:05 | disposition home or self-care (01) ==
LOC: LABBT 09:04
PROVIDERS: ATTEND Orthopaedic Surgery
DX: Z01.812 Encounter for preprocedural laboratory examination (principal); M16.11 Unilateral primary osteoarthritis, right hip
CPT/HCPCS: 80048; 85025; 85610; 86850; 86900; 86901

== ENCOUNTER 2018-02-03 04:03 | Emergency (ER) | payer BC ==
[2018-02-03] MEDS ORDERED: Pantoprazole 40 MG VIAL ONE (04:35)
[2018-02-03] MEDS ORDERED: Baclofen 10 MG TAB PO SCH (04:45)
[2018-02-03] MEDS ORDERED: Gabapentin 300 MG CAP PO SCH (04:45)
[2018-02-03 04:56] LABS: #Lymphocytes 0.6 thou/uL (1.20-3.40); #Monocytes 0.5 thou/uL (0.11-0.59); %Basophils 0.1 % (0.0-1.0); %Eosinophils 0.2 % (0.0-10.0); %Lymphocytes 8.2 % (21.0-51.0); %Monocytes 6.6 % (0.0-10.0); %Neutrophils 84.9 % (42.0-75.0); Mean Corpuscular HGB CONC 34.4 g/dL (32.0-36.0); Mean Corpuscular Hemoglobin 29.8 pg (27.0-31.0); Mean Corpuscular Volume 86.7 fL (78.0-98.0); Mean Platelet Volume 6.7 fL (7.4-10.4); Platelet Count 234 thou/uL (130-400); RBC Distribution Width 12.1 % (11.5-14.5); Red Blood Cell (RBC) Count 3.71 mill/uL (4.70-6.10); White Blood Cell (WBC) Count 7.1 thou/uL (4.8-10.8)
[2018-02-03 05:12] LABS: ALT (SGPT) 31 U/L (8-55); AST (SGOT) 41 U/L (5-34); Alkaline Phosphatase 63 U/L (40-150); Anion Gap 15 mmol/L (10-20); BUN (Urea Nitrogen) 20 mg/dL (8.4-25.7); Bilirubin, Total 1.1 mg/dL (0.2-1.2); Calc. Creatinine Clearance 0 mL/min (70-130); Calcium 9.4 mg/dL (7.8-10.44); Carbon Dioxide 26 mmol/L (22-29); Chloride 98 mmol/L (98-107); Estimated GFR-MDRD Greater than 90; Globulin 3.2 g/dL (2.4-3.5); Glucose 122 mg/dL (70-105); Potassium 3.5 mmol/L (3.5-5.1); Protein, Total 7.2 g/dL (6.0-8.3); Sodium 135 mmol/L (136-145)
--- NOTE | 2018-02-03 08:30 | RAD ---
CHEST 1 VIEW: Date: 02/03/18 HISTORY: 57-year-old male with history of hiccups, with vomiting and abdominal pain. COMPARISON: 01/18/18. FINDINGS: Monitor leads overlie the chest. Heart size is normal. The lungs are clear. Left perihilar granuloma calcification. IMPRESSION: Old granulomatous disease. No acute intrathoracic disease. Atherosclerosis of aorta. POS: [facility]
== END 2018-02-03 05:48 | disposition home or self-care (01) ==
LOC: ERS 04:03
DX: R06.6 Hiccough (principal); R10.9 Unspecified abdominal pain; K21.9 Gastro-esophageal reflux disease without esophagitis; E78.5 Hyperlipidemia, unspecified; I10 Essential (primary) hypertension; F32.9 Major depressive disorder, single episode, unspecified; Z79.899 Other long term (current) drug therapy
CPT/HCPCS: 71045; 80053; 85025; 93005; 96374; C9113

== ENCOUNTER 2018-03-22 15:00 | Inpatient (IN) | payer BC ==
[2018-03-22 15:45] VITALS: BMI 24.3
[2018-04-03] MEDS ORDERED: Tranexamic Acid 1,000 MG/10 ML VIAL ONE (11:35)
[2018-04-03] MEDS ORDERED: Sodium Chloride 0.9% 100 ML ONE (11:35)
[2018-04-03] MEDS ORDERED: CEFAZOLIN 2 GM/50 ML BAG ONE (11:35)
[2018-04-03] MEDS ORDERED: Fentanyl 100 MCG/2 ML VIAL ONE ×2 (12:10→15:09)
[2018-04-03] MEDS ORDERED: Midazolam HCl 2 mg/2 ml Vial ONE (12:10)
[2018-04-03] MEDS ORDERED: Naloxone HCl 0.4 mg/ml Vial IV PRN (12:30)
[2018-04-03] MEDS ORDERED: Ondansetron PF 4 MG/2 ML Vial IVP PRN ×2 (12:30→12:53)
[2018-04-03] MEDS ORDERED: diphenhydrAMINE 50 MG/ML VIAL IVP PRN (12:30)
[2018-04-03] MEDS ORDERED: Promethazine HCl 25 MG/ML VIAL IM PRN ×3 (12:30→14:32)
[2018-04-03] MEDS ORDERED: Zolpidem Tartrate 5 MG TAB PO PRN ×2 (12:30→12:53)
[2018-04-03] MEDS ORDERED: traMADol HCl 50 MG TAB PO PRN ×2 (12:30)
[2018-04-03] MEDS ORDERED: Hydrocerin (Eucerin) Cream 120 gm Jar TOP PRN (12:30)
[2018-04-03] MEDS ORDERED: Bupivacaine 0.25% 10 ML VIAL EPIDURAL PRN (12:30)
[2018-04-03] MEDS ORDERED: diphenhydrAMINE 50 MG/ML VIAL IM PRN (12:30)
[2018-04-03] MEDS ORDERED: Naloxone HCl 0.4 mg/ml Vial IVP PRN (12:30)
[2018-04-03] MEDS ORDERED: HYDROcodone/Acetaminophen 5/325 mg Tablet PO PRN ×2 (12:30)
[2018-04-03] MEDS ORDERED: Promethazine HCl 25 MG SUPP PR PRN (12:30)
[2018-04-03] MEDS ORDERED: Acetaminophen 325 MG TAB PO PRN (12:53)
[2018-04-03] MEDS ORDERED: diphenhydrAMINE 25 MG CAP PO PRN (12:53)
[2018-04-03] MEDS ORDERED: HYDROcodone/Acetaminophen 10/325 mg Tablet PO PRN ×2 (12:53)
[2018-04-03] MEDS ORDERED: Loperamide HCl 2 MG CAP PO PRN (12:54)
[2018-04-03] MEDS ORDERED: Bupivacaine/Epinephrine 0.25% 30 ML VIAL ONE (13:00)
[2018-04-03] MEDS ORDERED: CEFAZOLIN/Water 2 GM/20 ML SYRINGE SLOW IVP SCH (13:00)
[2018-04-03] MEDS ORDERED: Promethazine HCl 25 MG/ML VIAL SLOW IVP PRN (14:32)
[2018-04-03] MEDS ORDERED: Ondansetron HCl/PF 4 MG/2 ML Vial IVP PRN (14:32)
--- NOTE | 2018-04-03 17:37 | RAD ---
TWO VIEWS OF THE LEFT HIP 04/03/18 COMPARISON: None. HISTORY: Left hip replacement. Postoperative exam. FINDINGS: Two views of the left hip shows the patient to be status post left hip arthroplasty without perihardw are lucency or fracture. Air in the soft tissues is related to surgery. IMPRESSION: Status post left hip arthroplasty without evidence of complication. POS: [facility]
[2018-04-03] MEDS: Sodium Chloride 0.9% 1,000 ML IV SCH ×2 (17:44→22:50)
[2018-04-03] MEDS: Ketorolac Tromethamine 30 MG/ML VIAL IVP SCH (17:49)
--- NOTE | 2018-04-03 18:16 | CON ---
DATE OF CONSULTATION: 04/03/2018 TIME OF SERVICE: [address] Raul James. PRIMARY CARE PHYSICIAN: Dr. Lasha Parrish. REASON FOR CONSULTATION: Medical management, postop day #0 left total hip arthroplasty. HISTORY OF PRESENT ILLNESS: Mr. Mcnally is a very pleasant 57-year-old male with history of hyperlipidemia, hypertension, depression, BPH, sickle cell trait with chronic anemia, vertigo, and glaucoma. He is postop day #0 from a left total hip arthroplasty with no known intraoperative complications. He was transferred to the floor and we have been asked to consult for medical management. Last hip arthroplasty on the right side was done about 2 months ago. He had no postop complications of hiccups. No nausea or vomiting. He is tolerating p.o. Denies any pain. PAST MEDICAL HISTORY: 1. Hyperlipidemia. 2. Hypertension. 3. Depression. 4. BPH. 5. Glaucoma. 6. DJD. 7. Sickle cell trait. 8. Chronic anemia. 9. Vertigo. 10. Seasonal allergies. PAST SURGICAL HISTORY: 1. Right total hip arthroplasty in January 2018. 2. Right shoulder surgery x2 with a rotator cuff repair. 3. Back surgery. 4. Colonoscopy. HOME MEDICATIONS: 1. Vitamin C 500 mg daily. 2. Atorvastatin 80 mg p.o. at bedtime. 3. Bupropion XL 100 mg p.o. q.a.m. 4. Vitamin D3 2000 units daily. 5. Imodium 2 mg p.r.n. diarrhea. 6. Losartan 100 mg p.o. q.a.m. 7. Flomax 0.4 mg p.o. at bedtime. 8. Travatan 1 drop each eye at bedtime. 9. Hydrocodone p.r.n. ALLERGIES: 1. IODINE/SHELLFISH. 2. HE IS LACTOSE INTOLERANT. REVIEW OF SYSTEMS: All systems reviewed and negative except as stated in the HPI. FAMILY HISTORY: Significant for strokes, diabetes, and cancers. SOCIAL HISTORY: Significant for 2 to 3 beers per week, shot of rum daily, eggnog during this season. No tobacco use. No history of IV drug abuse. PHYSICAL EXAMINATION: VITAL SIGNS: He is afebrile. Pulse 82, blood pressure 140/85, respiratory rate 14, saturating 100% on room air. GENERAL: He is awake. He is alert. He is oriented x3. Well developed, well nourished, male, appears to be in zero distress. HEENT: Normocephalic and atraumatic. Pupils are equal, round, and reactive to light bilaterally. Mucous membranes are moist. No visible lesions. NECK: Supple. There is no lymphadenopathy or JVD. LUNGS: Clear. Good air movement and symmetrical chest excursion. CARDIOVASCULAR: Normal S1 and S2. No S3 or S4. No audible murmurs. EXTREMITIES: No cyanosis or clubbing. He has had no edema. SKIN: Warm, moist, well perfused. There is no tenting. LABORATORY DATA: Preop showed sodium 142, potassium 4.2, chloride 103, bicarb 30, BUN 12, creatinine 1.0, glucose 104, and calcium 9.5. Liver functions within normal limits. INR is 1.0. CBC showed a white count of 4.6, hemoglobin 14.3, hematocrit 41.2, and platelet count is 260,000. ASSESSMENT AND PLAN: 1. Hypertension, essential. 2. Hyperlipidemia. 3. BPH. 4. Depression/anxiety. 5. Glaucoma. 6. Sickle cell trait. We will continue his home medications while in-house. We will continue to follow with you. Thank you very much for this consultation. Job ID: [id number]
[2018-04-03] MEDS: CEFAZOLIN 2 GM/50 ML-DEXTROSE 2 GM in Premix Bag 1 BAG IVPB SCH (20:35)
[2018-04-03] MEDS: Senokot S 8.6-50 MG TAB PO SCH (20:36)
[2018-04-03] MEDS: Aspirin 81 mg Enteric Coated Tablet PO SCH (20:36)
[2018-04-03] MEDS: Tamsulosin HCl 0.4 MG CAP PO SCH (20:36)
[2018-04-03] MEDS: Atorvastatin Calcium 40 MG TAB PO SCH (20:36)
[2018-04-03] MEDS: Latanoprost 0.005% Ophth Soln 2.5 ml Bottle EA EYE SCH (21:03)
[2018-04-04] MEDS: Ketorolac Tromethamine 30 MG/ML VIAL IVP SCH ×5 (00:45→23:19)
[2018-04-04] MEDS: CEFAZOLIN 2 GM/50 ML-DEXTROSE 2 GM in Premix Bag 1 BAG IVPB SCH (05:00)
[2018-04-04] MEDS: diphenhydrAMINE 25 MG CAP PO PRN ×3 (05:28→19:16)
[2018-04-04 06:40] LABS: Hemoglobin 10.5 g/dL (14.0-18.0); Mean Corpuscular HGB CONC 34.7 g/dL (32.0-36.0); Mean Corpuscular Hemoglobin 28.9 pg (27.0-31.0); Mean Corpuscular Volume 83.3 fL (78.0-98.0); Mean Platelet Volume 6.9 fL (7.4-10.4); Platelet Count 163 thou/uL (130-400); RBC Distribution Width 12.9 % (11.5-14.5); Red Blood Cell (RBC) Count 3.64 mill/uL (4.70-6.10)
[2018-04-04] MEDS: Fentanyl/Bupivacaine 100 ML EPIDURAL SCH (07:25)
--- NOTE | 2018-04-04 08:01 | PDOC.PN ---
- Subjective Encounter Start Date: 04/04/18 Encounter Start Time: 07:58 follow up for post op medical amnagement of HTN, HLD, hiccups Pt had hicccups intermittently last night. No f/c, no N/V/D/c,no CPor sOB, no new complaintsAll systesm reviewed and neg x as above. - Objective MAR Reviewed: Yes Vital Signs & Weight: Vital Signs (12 hours) Temp Pulse Resp BP Pulse Ox 04/04/18 03:43 98.3 F 72 18 108/66 99 04/04/18 00:32 98 04/03/18 23:58 98.2 F 89 18 129/62 99 04/03/18 20:11 97.8 F 100 18 135/77 100 04/03/18 20:00 100 Weight Weight 165 lb I&O: 04/03/18 04/04/18 04/05/18 06:59 06:59 06:59 Intake Total 851.0 Output Total 250 Balance 601.0 Result Diagrams: 04/04/18 06:02 Phys Exam - Physical Examination Constitutional: NAD HEENT: PERRLA, moist MMs, sclera anicteric, oral pharynx no lesions Neck: no nodes, no JVD, supple, full ROM Respiratory: no wheezing, no rales, no rhonchi, clear to auscultation bilateral Cardiovascular: RRR, no significant murmur, no rub Gastrointestinal: soft, non-tender, no distention, positive bowel sounds Musculoskeletal: no edema Neurological: non-focal, normal sensation, moves all 4 limbs Lymphatic: no nodes Psychiatric: normal affect, A&O x 3 Skin: no rash, normal turgor, cap refill <2 seconds Dx/Plan (1) Hiccups Code(s): R06.6 - HICCOUGH Status: Acute Comment: thorazine PRN (2) Status post total hip replacement, right Code(s): Z96.641 - PRESENCE OF RIGHT ARTIFICIAL HIP JOINT Status: Acute (3) Anxiety and depression Code(s): F41.9 - ANXIETY DISORDER, UNSPECIFIED; F32.9 - MAJOR DEPRESSIVE DISORDER, SINGLE EPISODE, UNSPECIFIED Status: Chronic (4) BPH (benign prostatic hyperplasia) Code(s): N40.0 - BENIGN PROSTATIC HYPERPLASIA WITHOUT LOWER URINRY TRACT SYMP Status: Chronic Qualifiers: Lower urinary tract symptom presence: symptoms absent Qualified Code(s): N40.0 - Benign prostatic hyperplasia without lower urinary tract symptoms (5) Dyslipidemia Code(s): E78.5 - HYPERLIPIDEMIA, UNSPECIFIED Status: Chronic (6) Glaucoma Code(s): H40.9 - UNSPECIFIED GLAUCOMA Status: Chronic Qualifiers: Glaucoma type: unspecified Laterality: bilateral Qualified Code(s): H40.9 - Unspecified glaucoma - Plan cont current plan of care, PT/OT, out of bed/ambulate * . home tomorrow probably
[2018-04-04] MEDS: Multivitamin W/ Minerals 1 TAB PO SCH (09:40)
[2018-04-04] MEDS: Ferrous Gluconate 324 MG TAB PO SCH ×2 (09:40→21:15)
[2018-04-04] MEDS: Losartan 25 MG TAB PO SCH (09:40)
[2018-04-04] MEDS: Aspirin 81 mg Enteric Coated Tablet PO SCH ×2 (09:41→21:16)
[2018-04-04] MEDS: Bupropion 150 MG XL TAB PO SCH (09:41)
[2018-04-04] MEDS: Senokot S 8.6-50 MG TAB PO SCH ×2 (09:41→21:16)
--- NOTE | 2018-04-04 10:19 | OP ---
DATE OF PROCEDURE: 04/03/2018 PREOPERATIVE DIAGNOSIS: Degenerative joint disease of left hip. POSTOPERATIVE DIAGNOSIS: Degenerative joint disease of left hip. MANAGER INFUSION: Keshawn. BLOOD LOSS: 200. SPECIMEN: None. DRAINS: None. COMPLICATION: None. IMPLANTS USED: Pati Accolade 15 mm acetabulum with a standard 36 shell, a 36 mm ceramic head, and a 2.5 stem with a 15 mm PSL cup. PROCEDURE IN DETAIL: After informed consent was obtained in the preoperative holding area, the patient was taken to the operative suite where general anesthesia was induced. The patient was then positioned in the lateral decubitus position. The hip was then prepped and draped in usual sterile fashion. The patient received preoperative antibiotics. Prior to incision, time-out was called and all members of the surgical team agreed upon site, surgeon, and patient. After this, a longitudinal incision was made directly over the trochanter, noted by palpation extending 2 fingerbreadths above and below the trochanter. The deeper subcutaneous layer was undermined with Bovie electrocautery. The iliotibial band was encountered and incised sharply and the plane below this was developed bluntly. A Charnley retractor was placed to hold this opened. The lateral aspect of the trochanter and the abductor muscles were encountered and then reflected anteriorly off the trochanter using Bovie electrocautery. Once this was completed, the anterior capsule was then encountered and identified and copious capsulotomy was carried out, exposing the femoral neck and head. Dislocation maneuver was then performed and an in situ provisional neck cut was then made using the oscillating saw. Attention was then turned to acetabular preparation and sequential reaming was carried out up to the appropriate diameter. A trial was then malleted into place with good firm resistance and no pullout. The permanent acetabular shell was then malleted squarely into place, as was the appropriate liner. Once completed, the wound was copiously irrigated and attention was then turned to femoral preparation. Flexion and external rotation were performed of the exposed thigh and femoral elevators were then placed at the proximal aspect of the wound. Canal finder was used to establish the length of the canal and sequential reaming was carried out, followed by broaching. Once the appropriate stability was established with the trial broaches with flexion, extension and rotational stability, we did trial with neutral and 2 mm offset incremental necks. Once the appropriate size was decided upon, with good stability noted with flexion, extension, internal and external rotation and shuck being negative, we removed the femoral trial broach and malletted into place the permanent prosthesis with good firm fit, which was also stable to rotation. Again, the hip felt very stable to flexion, extension, internal and external rotation. Leg lengths appeared near anatomic clinically and we were quite happy with prosthesis placement. Copious irrigation was then carried out through the entirety of the wound. Primary closure of the abductors was accomplished with interrupted #2 Vicryl [id number] stitches and the IT band was then closed with interrupted #2 Vicryl, oversewn with a #2 running barbed Quill stitch. Subcutaneous fascia was closed with running barbed Quill stitch and a subcuticular Monocryl barbed Quill stitch was used for skin closure and augmented with skin cement. A sterile dressing was applied. The procedure was terminated without any complication. All counts were correct. The patient was awakened in the operative suite and taken to the recovery room in stable condition. Job ID: [id number]
[2018-04-04] MEDS: chlorproMAZINE HCl 25 MG TAB PO PRN ×3 (10:51→19:16)
[2018-04-04] MEDS: Sodium Chloride 0.9% 1,000 ML IV SCH ×2 (14:49→20:00)
--- NOTE | 2018-04-04 20:14 | CON ---
DATE OF CONSULTATION: 04/04/2018 REASON FOR CONSULTATION: Mr. Mcnally is a 57-year-old gentleman, who I was asked to see by Dr. James for consideration of radiation therapy to the left hip for prevention of heterotopic ossification. He has a previous history of heterotopic ossification of the right hip. HISTORY OF PRESENT ILLNESS: Mr. 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 It was planned that he would have a right hip replacement and then after he recovered from that, would have a left hip replacement. In early January, he underwent a right hip replacement therapy, which was uneventful. When he saw Dr. James in early March, it was felt that the right hip was a little more stiff than it should be. He had an x-ray performed in Dr. James's office, which showed some early heterotopic ossification of the right hip. It was elected to proceed with left hip replacement therapy, which had previously been planned yesterday. Because that he is at high risk for heterotopic ossification, I have been asked to see him for consideration of radiation therapy to the left hip. Presently, he has no shortness of breath. His only problem has been of hiccups that he has had since his surgery. He denies any areas of pain including no pain in the right hip. The only pain that he is having is his postoperative pain. He voices no other complaints. PAST MEDICAL HISTORY: 1. Hypertension. 2. Hypercholesterolemia. 3. History of depression. 4. BPH. 5. Glaucoma. 6. DJD. 7. Sickle cell trait. 8. Chronic anemia. 9. Vertigo. 10. Status post right total hip replacement. 11. Status post multiple right shoulder surgeries for bone spurs. 12. History of back surgery. MEDICATIONS: Vitamin C, atorvastatin, bupropion, vitamin D3, Imodium p.r.n., losartan, Flomax, Travatan, and hydrocodone p.r.n. ALLERGIES: IODINE/SHELLFISH. SOCIAL HISTORY: He drinks 2 to 3 alcoholic beverages per week. He has no tobacco use. He is accompanied at the bedside by his . FAMILY HISTORY: Heterotopic ossification, significant for stroke, and diabetes. REVIEW OF SYSTEMS: A 10-system review of systems is otherwise negative. PHYSICAL EXAMINATION: VITAL SIGNS: Height 5 feet 9 inches, weight 165 pounds, blood pressure 146/78, pulse is 87, respirations are 18, temperature is 97.5, O2 saturation is 98%. CONSTITUTIONAL: He is alert and oriented and in no apparent distress. He is well developed and well nourished. Karnofsky Performance Status is 70%, but expected to improve as he recovers from his hip replacement surgery. HEENT: Eyes; pupils are equal, round, and reactive to light. Extraocular movements are intact. ENT; oral cavity, no oral infection, oral lesion, or erythema. Palate elevates symmetrically. Gingiva is intact. NECK: Supple without cervical or supraclavicular adenopathy. No thyromegaly. Larynx midline. LUNGS: Breathing nonlabored. Clear to auscultation and percussion. CARDIOVASCULAR: Heart has regular rate and rhythm without murmur. No lower extremity edema. BACK: No tenderness on percussion of his spine. ABDOMEN: Soft, nontender, nondistended without mass or hepatosplenomegaly. LYMPHATIC: No axillary adenopathy bilaterally. EXTREMITIES: He has bandages and a drain in place from his hip replacement surgery. RADIOLOGIC DATA: Personal review of his plain film x-ray of the pelvis performed in early March at [facility] shows some early heterotopic ossification of the right hip. He has degenerative changes in the left hip. Review of plain film x-rays from his left hip replacement showed implant/hip to be in good place. LABORATORY DATA: CBC today revealed a white blood cell count of 9000 with a hemoglobin of 10.5, hematocrit of 30.3, platelet count of 163,000. ASSESSMENT: Mr. Mcnally is a 57-year-old gentleman with previous heterotopic ossification of the right hip, who now presents after left hip replacement for consideration of postoperative radiation therapy to the left hip. PLAN: I had a long discussion with Mr. Mcnally and his regarding his diagnosis, prognosis, prognostic factors and treatment options. They were initially under the impression that I was going to radiate the right hip. I explained to him that radiation at this point would not help prevent heterotopic ossification that he has already had to begin to form in the right hip. The only hope is that the right hip heterotopic ossification will remain mild, not limit his movement in the hip. However, because he has had heterotopic ossification in the right hip, he has a better than 80% chance of developing heterotopic ossification in the left hip. A single fraction of radiation therapy postoperatively given within 72 hours has been shown to be very effective in prevention of heterotopic ossification. I explained this to Mr. Mcnally and his . The logistics of radiation as well as the benefits and risk of treatment were discussed. The simulation procedure was discussed. Side effects would include, but not be limited to skin reaction, fatigue, lower blood counts, nausea, vomiting, small risk of prosthetic failure, and rarely other unforeseen things such as secondary malignancies from his radiation. These are extremely rare after single fraction heterotopic ossification. I actually think he tolerate his treatment very well with likely very little side effects. Time was taken to answer all of his questions regarding his treatment options. He is agreeable to proceed with radiation therapy as recommended to him. We will make arrangements to have him brought over to the cancer center later today for his treatment. Again, we had to deliver his treatment within 72 hours and we were within that time frame. Thank you for this interesting consultation. Job ID: [id number]
[2018-04-04] MEDS: Latanoprost 0.005% Ophth Soln 2.5 ml Bottle EA EYE SCH (21:15)
[2018-04-04] MEDS: Atorvastatin Calcium 40 MG TAB PO SCH (21:16)
[2018-04-04] MEDS: Tamsulosin HCl 0.4 MG CAP PO SCH (21:16)
[2018-04-05] MEDS: Fentanyl/Bupivacaine 100 ML EPIDURAL SCH (00:26)
[2018-04-05] MEDS: Sodium Chloride 0.9% 1,000 ML IV SCH (04:00)
[2018-04-05] MEDS: Ketorolac Tromethamine 30 MG/ML VIAL IVP SCH ×2 (06:38→12:51)
[2018-04-05 06:43] LABS: Hemoglobin 9.8 g/dL (14.0-18.0); Mean Corpuscular HGB CONC 34.5 g/dL (32.0-36.0); Mean Corpuscular Hemoglobin 29.1 pg (27.0-31.0); Mean Corpuscular Volume 84.2 fL (78.0-98.0); Mean Platelet Volume 7.3 fL (7.4-10.4); Platelet Count 136 thou/uL (130-400); RBC Distribution Width 13.1 % (11.5-14.5); Red Blood Cell (RBC) Count 3.36 mill/uL (4.70-6.10); White Blood Cell (WBC) Count 5.5 thou/uL (4.8-10.8)
[2018-04-05] MEDS: Ferrous Gluconate 324 MG TAB PO SCH (07:57)
[2018-04-05] MEDS: Losartan 25 MG TAB PO SCH (07:57)
[2018-04-05] MEDS: Bupropion 150 MG XL TAB PO SCH (07:57)
[2018-04-05] MEDS: Aspirin 81 mg Enteric Coated Tablet PO SCH (07:57)
[2018-04-05] MEDS: Multivitamin W/ Minerals 1 TAB PO SCH (07:58)
[2018-04-05] MEDS: Senokot S 8.6-50 MG TAB PO SCH (07:58)
[2018-04-05] MEDS: diphenhydrAMINE 25 MG CAP PO PRN (07:58)
[2018-04-05] MEDS: chlorproMAZINE HCl 25 MG TAB PO PRN (10:37)
[2018-04-05 12:17] VITALS: BP 112/66; TEMP 98.4
== END 2018-04-05 14:42 | disposition home or self-care (01) | DRG 470 ==
LOC: SURG A 04-03 10:36 → SJJU 04-03 14:52
PROVIDERS: ADMIT Orthopaedic Surgery; ATTEND Orthopaedic Surgery
PROC: 0SRB04Z Replacement of Left Hip Joint with Ceramic on Polyethylene Synthetic Substitute, Open Approach (ICD-10-PCS; principal; 2018-04-03)
DX: M16.12 Unilateral primary osteoarthritis, left hip (principal); E78.5 Hyperlipidemia, unspecified; I10 Essential (primary) hypertension; F32.9 Major depressive disorder, single episode, unspecified; N40.0 Benign prostatic hyperplasia without lower urinary tract symptoms; D57.3 Sickle-cell trait; D53.9 Nutritional anemia, unspecified; H40.9 Unspecified glaucoma; Z96.641 Presence of right artificial hip joint; Z79.899 Other long term (current) drug therapy; Z79.891 Long term (current) use of opiate analgesic; Z91.013 Allergy to seafood; Z91.048 Other nonmedicinal substance allergy status; J30.2 Other seasonal allergic rhinitis; F41.9 Anxiety disorder, unspecified; Z91.011 Allergy to milk products
CPT/HCPCS: 36415; 77014; 77290; 77307; 77334; 77412; 77417; 85027; G8978-GP-CM; G8979-GP-CJ; G8987-GO-CI; G8988-GO-CI; G8989-GO-CI; J1200; J1885; J2250; J3010; J3370; J7050; Q0161

== ENCOUNTER 2018-03-22 15:23 | Outpatient (CLI) | payer BC ==
[2018-03-22 16:55] LABS: Hemoglobin 14.3 g/dL (14.0-18.0); Mean Corpuscular HGB CONC 34.2 g/dL (32.0-36.0); Mean Corpuscular Hemoglobin 28.7 pg (27.0-31.0); Mean Corpuscular Volume 84.1 fL (78.0-98.0); Mean Platelet Volume 7.3 fL (7.4-10.4); Platelet Count 240 thou/uL (130-400); RBC Distribution Width 12.9 % (11.5-14.5); Red Blood Cell (RBC) Count 4.96 mill/uL (4.70-6.10); White Blood Cell (WBC) Count 4.6 thou/uL (4.8-10.8)
[2018-03-22 17:01] LABS: Prothrombin Time 13.1 SEC (12.0-14.7)
[2018-03-22 17:23] LABS: Anion Gap 12 mmol/L (10-20); BUN (Urea Nitrogen) 13 mg/dL (8.4-25.7); Calc. Creatinine Clearance 0 mL/min (70-130); Calcium 9.8 mg/dL (7.8-10.44); Carbon Dioxide 29 mmol/L (22-29); Chloride 102 mmol/L (98-107); Estimated GFR-MDRD 87; Glucose 98 mg/dL (70-105); Potassium 3.9 mmol/L (3.5-5.1); Sodium 139 mmol/L (136-145)
== END 2018-03-22 15:24 | disposition home or self-care (01) ==
LOC: LABBT 15:23
PROVIDERS: ATTEND Orthopaedic Surgery
DX: Z01.812 Encounter for preprocedural laboratory examination (principal); M16.12 Unilateral primary osteoarthritis, left hip
CPT/HCPCS: 80048; 85027; 85610; 87081

== ENCOUNTER 2021-02-05 13:05 | Outpatient (CLI) | payer BC | END 2021-02-05 13:06 | disposition home or self-care (01) | LOC: TBSIIMAG 13:05 | PROVIDERS: ATTEND Surgery | DX: M51.36 Other intervertebral disc degeneration, lumbar region (principal); M48.061 Spinal stenosis, lumbar region without neurogenic claudication; M47.816 Spondylosis without myelopathy or radiculopathy, lumbar region; M48.07 Spinal stenosis, lumbosacral region; Z98.890 Other specified postprocedural states | CPT/HCPCS: 72120; 72148 ==

== ENCOUNTER 2021-08-31 08:04 | Outpatient (CLI) | payer BC | END 2021-08-31 08:05 | disposition home or self-care (01) | LOC: SCSMRI 08:04 | PROVIDERS: ATTEND Orthopaedic Surgery | DX: M54.12 Radiculopathy, cervical region (principal); M48.02 Spinal stenosis, cervical region; M25.78 Osteophyte, vertebrae | CPT/HCPCS: 72141 ==

== ENCOUNTER 2022-06-17 13:54 | Outpatient (CLI) | payer BC | END 2022-06-17 13:55 | disposition home or self-care (01) | LOC: TBSIIMAG 13:54 | PROVIDERS: ATTEND Nurse Practitioner Family | DX: S63.591A Other specified sprain of right wrist, initial encounter (principal); M67.931 Unspecified disorder of synovium and tendon, right forearm ==

== ENCOUNTER 2022-08-16 14:05 | Outpatient (CLI) | payer BC | END 2022-08-16 14:06 | disposition home or self-care (01) | LOC: ULT 14:05 | PROVIDERS: ATTEND Family Medicine | DX: R22.42 Localized swelling, mass and lump, left lower limb (principal) ==

== ENCOUNTER 2023-05-26 09:56 | Outpatient (CLI) | payer MEDICARE, BC ==
[2023-05-26 11:56] LABS: #Eosinphils 0.1 10x3/uL (0.0-0.5); #Monocytes 0.4 10x3/uL (0.0-1.1); #Neutrophils 2.4 10x3/uL (1.5-8.4); %Basophils 0.2 % (0.0-2.0); %Eosinophils 3.2 % (0.0-6.0); %Lymphocytes 27.4 % (18.0-47.0); %Monocytes 8.7 % (0.0-10.0); %Neutrophils 60.3 % (40.0-75.0); Hematocrit 36.1 % (38.8-50.0); Hemoglobin 12.8 g/dL (13.5-17.5); Mean Corpuscular HGB CONC 35.5 g/dL (32.0-36.0); Mean Corpuscular Hemoglobin 29.4 pg (27.0-33.0); Mean Corpuscular Volume 82.8 fl (81.2-95.1); Mean Platelet Volume 9.2 fl (7.4-10.4); Platelet Count 209 10x3/uL (150-450); Red Blood Cell (RBC) Count 4.36 10x6/uL (4.32-5.72)
== END 2023-05-26 09:57 | disposition home or self-care (01) ==
LOC: LABBT 09:56
PROVIDERS: ATTEND Orthopaedic Surgery Hand Surgery
DX: Z01.818 Encounter for other preprocedural examination (principal); G56.03 Carpal tunnel syndrome, bilateral upper limbs
CPT/HCPCS: 85025; 93005; 93010

== ENCOUNTER 2023-05-30 08:36 | Day surgery (SDC) | payer MEDICARE, BC ==
[2023-05-26 10:31] VITALS: BMI 25.1
[2023-05-30] MEDS ORDERED: Bacitracin Zinc Ointment 30 gm TUBE ONE (10:21)
[2023-05-30] MEDS ORDERED: Bupivacaine PF 0.5% 30 ML VIAL ONE (10:21)
[2023-05-30] MEDS ORDERED: CEFAZOLIN 2 GM VIAL ONE (10:35)
[2023-05-30] MEDS ORDERED: Sodium Chloride 0.9% 100 ML ONE (10:35)
[2023-05-30] MEDS ORDERED: fentaNYL PF 100 MCG/2 ML SYRINGE ONE (10:44)
[2023-05-30] MEDS ORDERED: Midazolam HCl 2 mg/2 ml Vial ONE (10:44)
[2023-05-30] MEDS ORDERED: KETAMINE 100 MG/ML (5ML VIAL) ONE (10:44)
[2023-05-30] MEDS ORDERED: Propofol 500 MG/50 ML VIAL ONE (10:44)
[2023-05-30] MEDS ORDERED: Ketorolac Tromethamine 30 MG (1 mL) VIAL ONE (12:19)
== END 2023-05-30 12:58 | disposition home or self-care (01) ==
LOC: SDC 08:36
PROVIDERS: ATTEND Orthopaedic Surgery Hand Surgery
PROC: 01N50ZZ Release Median Nerve, Open Approach (ICD-10-PCS; principal; 2023-05-30)
DX: G56.03 Carpal tunnel syndrome, bilateral upper limbs (principal); G56.22 Lesion of ulnar nerve, left upper limb; M65.331 Trigger finger, right middle finger; M77.9 Enthesopathy, unspecified; E78.5 Hyperlipidemia, unspecified; Z96.641 Presence of right artificial hip joint; Z79.899 Other long term (current) drug therapy; Z91.041 Radiographic dye allergy status; Z91.013 Allergy to seafood; Z91.09 Other allergy status, other than to drugs and biological substances; Z88.8 Allergy status to other drugs, medicaments and biological substances
CPT/HCPCS: J0665; J1885; J2250; J2704; J3490

== ENCOUNTER 2023-07-14 10:12 | Outpatient (CLI) | payer MEDICARE, BC ==
[2023-07-14 11:39] LABS: #Basophils 0.01 10x3/uL (0.0-0.2); #Eosinphils 0.09 10x3/uL (0.0-0.5); #Monocytes 0.33 10x3/uL (0.0-1.1); #Neutrophils 2.31 10x3/uL (1.5-8.4); %Basophils 0.3 % (0.0-2.0); %Eosinophils 2.3 % (0.0-6.0); %Lymphocytes 28.8 % (18.0-47.0); %Monocytes 8.5 % (0.0-10.0); %Neutrophils 59.8 % (40.0-75.0); Hematocrit 35.3 % (38.8-50.0); Hemoglobin 12.7 g/dL (13.5-17.5); Mean Corpuscular Hemoglobin 29.9 pg (27.0-33.0); Mean Corpuscular Volume 83.1 fl (81.2-95.1); Mean Platelet Volume 8.9 fl (7.4-10.4); Platelet Count 182 10x3/uL (150-450); RBC Distribution Width 12.7 % (11.5-14.5); Red Blood Cell (RBC) Count 4.25 10x6/uL (4.32-5.72); White Blood Cell (WBC) Count 3.9 10x3/uL (3.5-10.5)
== END 2023-07-14 10:13 | disposition home or self-care (01) ==
LOC: LABBT 10:12
PROVIDERS: ATTEND Orthopaedic Surgery Hand Surgery
DX: Z01.818 Encounter for other preprocedural examination (principal); G56.01 Carpal tunnel syndrome, right upper limb
CPT/HCPCS: 85025; 93005; 93010

== ENCOUNTER 2023-09-19 15:39 | Outpatient (CLI) | payer MEDICARE, BC ==
[2023-09-19 16:54] LABS: Hematocrit 35.1 % (38.8-50.0); Hemoglobin 12.7 g/dL (13.5-17.5); Mean Corpuscular HGB CONC 36.2 g/dL (32.0-36.0); Mean Corpuscular Volume 82.8 fl (81.2-95.1); Mean Platelet Volume 8.6 fl (7.4-10.4); Platelet Count 193 10x3/uL (150-450); RBC Distribution Width 13.1 % (11.5-14.5); Red Blood Cell (RBC) Count 4.24 10x6/uL (4.32-5.72); White Blood Cell (WBC) Count 4.1 10x3/uL (3.5-10.5)
[2023-09-19 17:09] LABS: PTT 25.9 sec (22.0-33.0); Prothrombin Time 11.2 sec (9.5-12.1)
[2023-09-19 17:17] LABS: Anion Gap 14 mmol/L (10-20); BUN (Urea Nitrogen) 15 mg/dL (8.4-25.7); Calc. Creatinine Clearance 0 mL/min (70-130); Calcium 9.4 mg/dL (7.8-10.44); Carbon Dioxide 27 mmol/L (23-31); Chloride 103 mmol/L (98-107); Estimated GFR 66; Glucose 102 mg/dL (80-115); Potassium 3.8 mmol/L (3.5-5.1); Sodium 140 mmol/L (136-145)
== END 2023-09-19 15:40 | disposition home or self-care (01) ==
LOC: LABBT 15:39
PROVIDERS: ATTEND Surgery
DX: Z01.818 Encounter for other preprocedural examination (principal); M51.16 Intervertebral disc disorders with radiculopathy, lumbar region; M48.062 Spinal stenosis, lumbar region with neurogenic claudication
CPT/HCPCS: 80048; 85027; 85610; 85730; 93005; 93010